=== PATIENT | male | born 1960 | race Two or more races ===

== ENCOUNTER 2017-02-02 06:45 | Day surgery (SDC) | payer BC ==
[~2017-02-02] VITALS: Ht 175.3 cm; Wt 81.1 kg
[2017-02-02 06:00] VITALS: BP 135/87
[~2017-02-02 06:45] MED LIST: ALBU18HF INH; CLAR500T3 PO; FLUT16SP NAS; HYDR5SYR PO; MOME13HF INH; OMEP-110 PO
[2017-02-02] MEDS ORDERED: FENTANYL PF 250 MCG/5ML ONE (07:06)
[2017-02-02] MEDS ORDERED: MIDAZOLAM 1 MG/ML, 2ML ONE (07:06)
[2017-02-02] MEDS ORDERED: BUPIVACAINE/PF 0.5% ONE (07:15)
[2017-02-02] MEDS ORDERED: DEXAMETHASONE 4 MG/ML, 1ML ONE (07:35)
[2017-02-02] MEDS ORDERED: ONDANSETRON 2MG/ML, 2ML ONE (07:35)
[2017-02-02] MEDS ORDERED: CEFAZOLIN 1,000 MG ONE (07:35)
[2017-02-02] MEDS ORDERED: PROPOFOL 10 MG/ML, 20ML ONE (07:35)
[2017-02-02] MEDS ORDERED: hydrALAzine 20 MG/ML, 1ML IV PRN (08:00)
[2017-02-02] MEDS ORDERED: MIDAZOLAM 1 MG/ML, 2ML IV PRN (08:00)
[2017-02-02] MEDS ORDERED: FENTANYL PF 100 MCG/2ML IV PRN (08:00)
[2017-02-02] MEDS ORDERED: HYDROcodone/APAP 7.5-325MG/15ML UDC PO PRN (08:00)
[2017-02-02] MEDS ORDERED: ACETAMINOPHEN 325 MG TABLET PO PRN (08:00)
[2017-02-02] MEDS ORDERED: ONDANSETRON 2MG/ML, 2ML IVPush PRN (08:00)
[2017-02-02] MEDS ORDERED: LABETALOL 5MG/ML, 20ML IV PRN (08:00)
[2017-02-02] MEDS ORDERED: PROMETHAZINE 25 MG/ML, 1ML IV PRN (08:00)
[2017-02-02] MEDS ORDERED: ALBUTEROL/IPRATROPIUM 2.5MG/0.5MG, 3 ML NPPB PRN (08:00)
[2017-02-02] MEDS ORDERED: MEPERIDINE/PF 25MG/0.5ML IVPush PRN (08:00)
[2017-02-02] MEDS ORDERED: OXYcodone 5 MG/5 ML ORAL.SOL UDC PO PRN (08:00)
[2017-02-02] MEDS ORDERED: EPHEDRINE 50 MG/ML, 1ML IVPush PRN (08:00)
[2017-02-02] MEDS ORDERED: KETOROLAC 30 MG/1 ML IV PRN (08:00)
[2017-02-02] MEDS ORDERED: ALBUTEROL SULFATE 2.5 MG/3 ML NPPB PRN (08:00)
[2017-02-02] MEDS ORDERED: HYDROmorphone 1 MG/ML, 1ML IV PRN (08:00)
[2017-02-02] MEDS ORDERED: ACETAMINOPHEN 650 MG/20.3 ML UDC ONE (08:20)
[2017-02-02] MEDS ORDERED: FENTANYL PF 100 MCG/2ML ONE (08:20)
[2017-02-02] MEDS ORDERED: OXYcodone 5 MG/5 ML ORAL.SOL UDC ONE ×2 (08:20)
[2017-02-02] MEDS ORDERED: morphine SULFATE 10 MG/ML, 1ML IV PRN (10:30)
[2017-02-02] MEDS ORDERED: HYDROcodone/APAP 5/325 TABLET PO PRN (10:30)
[2017-02-02] MEDS ORDERED: PROMETHAZINE 25 MG/ML, 1ML IM PRN (11:00)
[2017-02-02] MEDS ORDERED: ONDANSETRON 2MG/ML, 2ML IV PRN (11:00)
[2017-02-02 13:05] VITALS: BP 132/79
[2017-02-02] MEDS ORDERED: HYDR-3138 PO (13:52)
[2017-02-02 14:09] VITALS: BP 115/71
== END 2017-02-02 14:30 | disposition home or self-care (01) ==
LOC: OR 06:45 → 4NOR 06:50 → OR 07:40
PROVIDERS: ATTEND Orthopaedic Surgery
DX: S52.121A Displaced fracture of head of right radius, initial encounter for closed fracture (principal); S52.041A Displaced fracture of coronoid process of right ulna, initial encounter for closed fracture; W19.XXXA Unspecified fall, initial encounter; Y93.89 Activity, other specified; Y92.89 Other specified places as the place of occurrence of the external cause; Y99.8 Other external cause status; J45.909 Unspecified asthma, uncomplicated
CPT/HCPCS: 24345; 24665; 73080; 76001; C1713; J0690; J1100; J2250; J2270; J2405; J2704; J3010; J3490